=== PATIENT | male | born 1985 | race Caucasian/White ===

== ENCOUNTER 2020-02-26 03:40 | Emergency (ER) | payer BC ==
[2020-02-26] MEDS ORDERED: Adacel (T-DAP) 0.5 ML SYRINGE ONE (03:55)
== END 2020-02-26 04:13 ==
LOC: ERS 03:40
DX: S80.811A Abrasion, right lower leg, initial encounter (principal); I10 Essential (primary) hypertension; F41.9 Anxiety disorder, unspecified; F17.210 Nicotine dependence, cigarettes, uncomplicated; Z79.899 Other long term (current) drug therapy; X58.XXXA Exposure to other specified factors, initial encounter
CPT/HCPCS: 90471; 90715; 99283